=== PATIENT | male | born 1955 | race Caucasian/White ===

== ENCOUNTER 2019-03-11 14:56 | Outpatient (CLI) | payer MEDICAID, SELFPAY ==
[2019-03-11 17:02] LABS: Hemoglobin A1C 6.4 % (4.5-6.2)
== END 2019-03-11 15:16 ==
PROVIDERS: PCP General Practice; Visit Provider General Practice
DX: R73.09 Other abnormal glucose (principal)
CPT/HCPCS: 36415; 83036

== ENCOUNTER 2024-10-25 06:57 | Day surgery (SDC) | payer MEDICARE, SELFPAY ==
--- NOTE | 2024-10-24 19:17 | HPE_ITS ---
Assessment and Plan Assessment and plan (1) Nuclear age-related cataract, right eye: Status: Acute Assessment and plan: Assessment: Visually significant cataract of the right eye. Plan: Cataract extraction with intraocular lens implantation right eye, followed by left eye. (2) Nuclear age-related cataract, left eye: Status: Acute Assessment and plan: Assessment: Visually significant cataract of the left eye. Plan: Cataract extraction with intraocular lens implantation right eye, followed by left eye History of Present Illness History of Present Illness Chief Complaint: Progressive decreased vision, both eyes Narrative: The patient is a 69-year-old male who presented with complaints of decreased visual acuity in both eyes at both distance and near, right eye worse than left. He notes his glasses no longer helped his vision, and he has significant difficulty driving and snow or bright sun due to the glare. He wears [id number] glasses for reading, but these no longer help either. Review of Systems All systems reviewed & are unremarkable except as noted in HPI and below PFSH All Active Problems Nuclear age-related cataract, left eye (Acute) Nuclear age-related cataract, right eye (Acute) Cyst of kidney, acquired (Acute) Conductive hearing loss, external ear (Acute) Impacted cerumen, bilateral (Acute) Medical History History of excessive cerumen Kidney cysts onset 10/14/2020 Microalbuminuria onset 03/26/2020 Lymphadenopathy onset 10/14/2020 Chronic sciatica onset 03/25/2020 Fatty liver disease, nonalcoholic onset 05/04/2021 GERD (gastroesophageal reflux disease) 08/19/2019 Obstructive sleep apnea syndrome onset 07/24/13 Smoker onset 07/13/2021 Hyperlipidemia onset 03/25/2020 Type 2 diabetes mellitus onset 07/01/2020 Surgical History Status post trigger finger release 09/27/2016-Right ring & middle Family History Mother Neoplasm of brain Diabetes COPD (chronic obstructive pulmonary disease) Brother COPD (chronic obstructive pulmonary disease) Maternal Grandfather Heart disease Social History Smoking/Tobacco Use Status: Current-Occasional Tobacco: How many years used: 40 Smoking risk assessment performed?: Yes Alcohol Intake: current Alcohol Intake frequency: holidays/special occasions only Alcohol type: beer and wine Drug use: Never Substance use type: does not use Household members: spouse Housing: house Communication Needs: Corrective Lenses and Language Barriers 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[employer] Pets and animals: Yes Pets and animals: dog(s) What is your relationship status?: Panel score (0-1 are the most socially isolated patients): 1 Additional Social history: [facility] Meds Allergies and Home Medications Allergies Allergy/AdvReac Type Severity Reaction Status Date / Time tamsulosin Allergy itching, Verified 10/25/24 07:27 lightheadedness Home Medications ?Medication ?Instructions ?Recorded ?Confirmed ?Type aspirin 81 mg capsule 81 mg PO DAILY 10/27/21 10/25/24 History omega-3 fatty acids 500 mg capsule 500 mg PO DAILY 07/12/24 10/25/24 History losartan 25 mg tablet 25 mg PO DAILY 10/23/24 10/25/24 History naproxen 500 mg tablet,delayed 500 mg PO DAILY 10/23/24 10/25/24 History release Exam Eyes Other: On examination his corrected visual acuity was 20/200 OD, 20/40 OS. Extraocular Valerie is normal. Intraocular pressure is 15 OD, 17 OS. Slit-lamp examination shows pupils dilating only to 3.5 mm OU. There is a dense brunescent cataract in the right eye, with a more moderate brunescent cataract in the left eye. Funduscopic examination shows disc cupping of 0.3 OU with normal vessels, macula, peripheral retina and vitreous. Resp Auscultation: clear to auscultation bilaterally Cardio Rate: regular rate Rhythm: regular rhythm
[2024-10-25 07:08] VITALS: BP 168/79; PULSE 98; RESP 20; TEMP 36.5; O2SAT 99
[2024-10-25] MEDS: Tropicam./Phenyleph. (1/2.5%) 5 ML BTL OD ×3 (07:25→07:39)
--- NOTE | 2024-10-25 08:41 | W.ANESPRE ---
General Info Date of Service Date Performed: 10/25/24 Height: 5 ft 3 in Weight: 89 kg Body Mass Index (BMI): 34.7 Surgical Procedure: Operation Date: 10/25/24 09:10 Proposed Procedure Side Surgeon p Cataract Extraction with IOL Implant Right Nick Turner MD Meds Allergies and Home Medications Allergies Allergy/AdvReac Type Severity Reaction Status Date / Time tamsulosin Allergy itching, Verified 10/25/24 07:27 lightheadedness Home Medication ?Medication ?Instructions ?Recorded aspirin 81 mg capsule 81 mg PO DAILY 10/27/21 omega-3 fatty acids 500 mg capsule 500 mg PO DAILY 07/12/24 losartan 25 mg tablet 25 mg PO DAILY 10/23/24 naproxen 500 mg tablet,delayed 500 mg PO DAILY 10/23/24 release Current Visit Medications: Current Medications Generic Name Dose Route Start Last Admin Trade Name Freq PRN Reason Stop Dose Admin Acetaminophen 1,000 mg 10/25/24 06:00 Acetaminophen 500 Mg Tab PO 11/24/24 05:59 Q4H PRN PRN Balanced Salt Solution 500 ml 10/25/24 06:00 Balanced Salt Soln.-Plus 500 Ml Bag OP 11/24/24 05:59 DIRECTED [facility] Miscellaneous Medication 0 ml 10/25/24 06:00 Prednisolone 1%, Moxifloxacin 0.5%, Bromfenac 0.09% 5.6ml Btl OD 11/24/24 05:59 DIRECTED ARYAN Miscellaneous Medication 0 ml 10/25/24 06:00 10/25/24 07:39 Tropicam./Phenyleph. (1/2.5%) 5 Ml Btl OD 11/24/24 05:59 1 drp DIRECTED ARYAN Administration Tetracaine HCl 0 ml 10/25/24 06:00 Tetracaine 0.5% 4 Ml Btl OD 11/24/24 05:59 DIRECTED ARYAN PFSH Active Problems Active Problems: Problem Status Onset Code Nuclear age-related cataract, left eye Acute H25.12 Nuclear age-related cataract, right eye Acute H25.11 Cyst of kidney, acquired Acute N28.1 Conductive hearing loss, external ear Acute H90.2 Impacted cerumen, bilateral Acute H61.23 Medical History Medical History History of excessive cerumen Kidney cysts onset 10/14/2020 Microalbuminuria onset 03/26/2020 Lymphadenopathy onset 10/14/2020 Chronic sciatica onset 03/25/2020 Fatty liver disease, nonalcoholic onset 05/04/2021 GERD (gastroesophageal reflux disease) 08/19/2019 Obstructive sleep apnea syndrome onset 07/24/13 Smoker onset 07/13/2021 Hyperlipidemia onset 03/25/2020 Type 2 diabetes mellitus onset 07/01/2020 Surgical History Surgical History Status post trigger finger release 09/27/2016-Right ring & middle Tobacco Smoking/Tobacco Use Status: Current-Occasional Alcohol Alcohol Intake: current Alcohol intake frequency: holidays/special occasions only Alcohol type: beer and wine Substance Use Substance use: Never Substance use type: does not use Vital Signs and Lab Results Vital Signs Most Recent Vital Signs in EMR: Most Recent Vital Signs Temp Pulse Resp BP Pulse Ox 36.5 C 98 H 20 168/79 H 99 10/25/24 07:08 10/25/24 07:08 10/25/24 07:08 10/25/24 07:08 10/25/24 07:08 Lab Results Blood Type / Crossmatch: No Data to Display Complete Blood Count: No Data to Display Complete Metabolic Panel: No Data to Display Liver Function Panel: No Data to Display Coagulation Panel: No Data to Display Cardiac Panel: No Data to Display Arterial Blood Gas: No Data to Display Venous Blood Gas: No Data to Display Pancreas Panel: No Data to Display Thyroid Panel: No Data to Display Infectious Disease: No Data to Display Blood Cultures: No Data to Display Toxicology Panel: No Data to Display Anesthesia Assessment and Plan Anesthesia History Personal History: No History of Anesthesia Complications Family History: No Family History of Anesthesia Complications Exercise Tolerance Exercise Tolerance: Metabolic Equivalents>4 Cardiac & Pulmonary Exam Cardiac Exam: Normal S1/S2 Heart Sounds Pulmonary Exam: Clear Bilateral Breath Sounds Implantable Cardiac Device Does patient have a Pacemaker or an ICD?: No Airway Exam Known Difficult Airway: No Mallampati Class: 2 Mouth Opening: Normal (> 3cm) Thyromental Distance: Greater than 3 cm Neck Range of Motion: Full ROM Neck Circumference: Thick Teeth Condition: Normal Dentition (Few teeth missing) ASA Classification ASA Score: ASA 2 Emergency Case?: No NPO Status NPO Status: NPO Clears >2 hours, Solids >8 hours Anesthesia Plan Resuscitation Status: Full Code Anesthesia Technique: General Anesthesia Airway Planned: Natural Airway Monitors Used: Standard Monitors
[2024-10-25 09:10] VITALS: BMI 34.7
[2024-10-25] MEDS: Duovisc Viscoelastic System EACH 1 EACH (09:17)
[2024-10-25] MEDS: Moxifloxacin-PF 1 MG/ML VIAL (09:18)
[2024-10-25] MEDS: Lidocaine 1% Pres-Free 5 ML VIAL (09:18)
[2024-10-25] MEDS: Phenylephrine/Lidocaine (15/10) MG/ML 1 ML VIAL (09:19)
[2024-10-25] MEDS: Povidone-Iodine Ophth 30 ML BTL (09:20)
[2024-10-25] MEDS: Balanced Salt Soln.-PLUS 500 ML BAG OP (09:21)
[2024-10-25] MEDS: Prednisolone 1%, Moxifloxacin 0.5%, Bromfenac 0.09% 5.6ML BTL OD (09:22)
[2024-10-25] MEDS: Tetracaine 0.5% 4 ML BTL OD (09:24)
[2024-10-25] MEDS: Trypan Blue 0.06% 0.5 ML SYR (09:33)
[2024-10-25 09:59] VITALS: BP 148/66; PULSE 80; RESP 16; TEMP 36.7; O2SAT 97
--- NOTE | 2024-10-25 10:02 | ROE_ITS ---
Operative Note Operative Note PRE-OP DIAGNOSIS: Dense nuclear cataract, right eye Absent red reflex, right eye Poorly dilating pupil, right eye POST-OP DIAGNOSIS: same PROCEDURE: Cataract extraction using phacoemulsification with intraocular lens implant, right eye Pupillary dilation and iris stabilization with pupillary expansion device Insertion of capsule tension ring SURGEON: Nick Turner ANESTHESIA TYPE: Local By Surgeon and MAC Refer to Anesthesia Record ESTIMATED BLOOD LOSS: 0 PATHOLOGY: none sent COMPLICATIONS: None Patient was transported to: same day Patient's condition: stable Implants: Suresh & Suresh Tecnis Eyhance DIB00 Indications: Progressive visual loss due to cataract, right eye Poorly dilating pupil, right eye Procedure Description: CATARACT SURGERY OPERATIVE REPORT PREOPERATIVE DIAGNOSIS: 1. Dense nuclear cataract, right eye 2. Poorly dilating pupil, right eye POSTOPERATIVE DIAGNOSIS: Same OPERATION: 1. Cataract extraction using phacoemulsification with posterior chamber intraocular lens implant, right eye. IOL: IOL Psychological Operations/Model: Suresh & Suresh Tecnis Eyhance DIB00 IOL Power: + 25.0 diopters IOL Serial Number: [id number] Optic Diameter: 6.0mm Haptic/Overall Diameter: 13.0mm PHACO INFO: KirtFashiolistaurion Vision System with OZil and Active Fluidics Cumulative Dispersed Energy (CDE): 23.83 seconds SURGEON: Nick Turner MD, TYREL ANESTHESIA: Monitored Anesthesia Care (MAC), with local sub-tenon's anesthetic infiltration COMPLICATIONS: None SPECIMENS: None INDICATIONS FOR PROCEDURE: The patient is a 69-year-old male with history of progressive decreased vision in his right eye. He is noted to have a dense nuclear cataract with visual acuity of less than 2400. The option of cataract surgery was offered to the patient and he wished to proceed. See office notes for detailed information. PROCEDURE: The correct surgical eye was identified and marked as the right eye and the pupil was dilated in the preoperative area using mydriatics and cycloplegics. The dilated pupil size was 3.0 mm. The patient elected to proceed without oral sedation. The patient was brought to the operating room where cardiopulmonary monitoring was instituted and surgical time-out was performed, confirming the correct operative eye and IOL power. Topical anesthesia was administered and ophthalmic povidone-iodine 5% was instilled into the conjunctival fornices. The annalise-ocular area was prepped with Betadine 10% solution and draped in the usual sterile fashion for intraocular surgery, including an aperture drape. A Tegaderm transparent film dressing was cut in half and used to cover the lashes and lid margins. Care was taken to sequester the lashes and lid margins under the Tegaderm dressing. A lid speculum was placed between the lids of the operative eye and the Kirt LuxOR Revalia operating microscope was maneuvered into position. Valorie scissors were then used to make a conjunctival buttonhole approximately 6mm posterior to the limbus in the inferonasal quadrant. Blunt dissection was carried out to expose bare sclera, and a blunt-tipped sub-tenon?s anesthesia cannula was introduced and passed posteriorly along the globe where non- preserved plain lidocaine was injected into posterior sub-Tenon?s space. A sideport knife was used to make a paracentesis port. Intraocular phenylephrine/lidocaine was injected into the anterior chamber. The anterior chamber was filled with viscoelastic. A keratome knife was used to construct a 2-plane clear corneal tunnel extending 2.0mm into clear cornea. Provisc was injected into the anterior chamber, followed by a 6.25 mm pupil expansion device. The cohesive viscoelastic was then removed using irrigation/aspiration, and VisionBlue was instilled into the anterior chamber and painted over the anterior lens capsule and allowed to sit for 30 seconds. The VisionBlue was then irrigated out of the eye, and the anterior chamber preformed with Viscoat. A flap was raised on the anterior capsule and capsulorhexis forceps were used to complete a continuous curvilinear caps ulorhexis of 4.8 mm. The anterior capsule was noted to be extremely thin and mild to moderate diffuse Dondero laxity was noted. Balanced salt solution was then used to perform cortical cleaving hydr odissection and nuclear hydrodelineation until the lens could be freely rotated within the capsular bag. The lens nucleus was then disassembled and removed within the capsular bag and iris plane using phacoemulsification. The deep central groove was sculpted into the nucleus, which was rotated 180 degrees and the groove continued. Nucleus splitters were then used to crack the nucleus into 2 halves. Additional Viscoat was injected and each nuclear half was subchopped into multiple small fragments which were emulsified at the iris plane, instilling additional Viscoat intermittently. Residual cortical material was removed using the I/A handpiece. The posterior capsule was carefully polished to remove as much residual lens epithelial cells as safely possible. The capsular bag was then inflated and the anterior chamber deepened with cohesive viscoelastic. A Morcher Type 15 capsule tension ring was then inserted into the capsular bag without difficulty. The lens implant described above was inserted into the capsular bag using the Suresh and SocialPicksclark Check pre- loaded injector. A Kuglen hook was used to dial the IOL into position. The pupil expansion device was then removed in the reverse order of its insertion. Residual viscoelastic was then removed first from posterior to the IOL, then from the anterior chamber using the I/A handpiece. The lens implant was noted to center nicely within the capsular bag. The incisions were stromally hydrated, and the anterior chamber was reformed using BSS. Then 0.5cc of moxifloxacin 1.0mg/ml were injected into the capsular bag and anterior chamber. The incisions were checked with a Weck spear and found to be secure. Several drops of ophthalmic povidone-iodine 5% were then applied to the eye followed by two drops ocombination steroid/NSAID/antibiotic solution. The drapes were removed and a clear plastic protective eye shield was placed over the eye. The patient was then returned to Same Day Surgery in stable condition. Date of Procedure: 10/25/24
--- NOTE | 2024-10-25 10:02 | W.PM.DSUDISC ---
Date of service: 10/25/24 Discharge Plan Disposition Patient Disposition: Home Discharge Details Attending Provider: Nick Turner Primary Care Provider: Sarthak Tomlinson Home Meds and New Rx's Prescriptions: No Action aspirin 81 mg capsule 81 mg PO DAILY omega-3 fatty acids 500 mg capsule 500 mg PO DAILY losartan 25 mg tablet 25 mg PO DAILY Patient Comments: TAKE 1 TABLET BY MOUTH ONCE DAILY naproxen 500 mg tablet,delayed release (DR/EC) 500 mg PO DAILY Discharge Instructions Stand Alone Forms: DSU Post-Op Cataract, Anjelica Damian (DSU) Discharge Orders Discharge Orders: Discharge Order (Routine); Ordered 10/25/24 Ordered By: Nick Turner DS: Diagnosis Discharge Diagnosis (1) Nuclear age-related cataract, right eye: Status: Resolved
--- NOTE | 2024-10-25 10:11 | W.ANESPOSTOP ---
Postoperative Evaluation Date, Time and Location Date Performed: 10/25/24 Time Performed: 10:06 Patient Location: Day Surgery Unit Vital Signs Most Recent Imported Vital Signs: Most Recent Vital Signs Temp Pulse Resp BP Pulse Ox 36.7 C 80 16 148/66 H 97 10/25/24 09:59 10/25/24 09:59 10/25/24 09:59 10/25/24 09:59 10/25/24 09:59 Pain Score Most Recent Pain Score: Most Recent Pain Score Pain Level 0 10/25/24 09:59 Assessment Mental Status: Awake (Alert & Oriented to Patient Baseline) Airway and Respiratory Function: Patent airway with normal (patient baseline) respiratory exam Cardiovascular Function: Hemodynamically Stable Hydration Status: Adequately Hydrated Nausea & Vomiting: No Nausea or Vomiting Pain: Pt. Denies Any Pain Peripheral Nerve Block: Patient did not receive a nerve block
== END 2024-10-25 10:23 | disposition home or self-care (01) ==
LOC: SUR 06:58
PROVIDERS: PCP Physician Assistant; Visit Provider Ophthalmology
PROC: (CPT 66982; principal; 2024-10-25 09:00)
DX: H25.11 Age-related nuclear cataract, right eye (principal); H25.12 Age-related nuclear cataract, left eye; H57.09 Other anomalies of pupillary function
CPT/HCPCS: 66982; 00123; V2632; J2003

== ENCOUNTER 2025-02-07 13:03 | Day surgery (SDC) | payer MEDICARE, SELFPAY ==
--- NOTE | 2025-02-06 18:43 | W.PREOPHP ---
Assessment and Plan Assessment and plan (1) Nuclear age-related cataract, left eye: Status: Acute Assessment and plan: Assessment: Visually significant cataract, left eye. Plan: Cataract extraction with intraocular lens implant, left eye. History of Present Illness History of Present Illness Chief Complaint: progressive decreased vision left eye Narrative: The patient is a 70-year-old male with history of progressive decreased vision in both eyes, right eye worse than left. He noted difficulty seeing road signs and reading fine print. He has significant difficulty with glare. He was noted to have dense nuclear cataract in the right eye with moderate nuclear cataract in the left eye. He underwent cataract surgery in the right eye on 10/25/2024. Postoperatively he is doing well. He now presents for cataract surgery in the left eye. Review of Systems All systems reviewed & are unremarkable except as noted in HPI and below PFSH All Active Problems Nuclear age-related cataract, left eye (Acute) Cyst of kidney, acquired (Acute) Conductive hearing loss, external ear (Acute) Impacted cerumen, bilateral (Acute) Medical History History of excessive cerumen Kidney cysts onset 10/14/2020 Microalbuminuria onset 03/26/2020 Lymphadenopathy onset 10/14/2020 Chronic sciatica onset 03/25/2020 Fatty liver disease, nonalcoholic onset 05/04/2021 GERD (gastroesophageal reflux disease) 08/19/2019 Obstructive sleep apnea syndrome onset 07/24/13 Smoker onset 07/13/2021 Hyperlipidemia onset 03/25/2020 Type 2 diabetes mellitus onset 07/01/2020 Surgical History Status post trigger finger release 09/27/2016-Right ring & middle Family History Mother Neoplasm of brain Diabetes COPD (chronic obstructive pulmonary disease) Brother COPD (chronic obstructive pulmonary disease) Maternal Grandfather Heart disease Social History Smoking/Tobacco Use Status: Current-Occasional Tobacco Type: cigarettes Tobacco: How many years used: 40 Smoking risk assessment performed?: Yes Alcohol Intake: current Alcohol Intake frequency: holidays/special occasions only Alcohol type: beer and wine Drug use: Never Substance use type: does not use Household members: spouse Housing: house Communication Needs: Corrective Lenses and Language Barriers 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[employer] Pets and animals: Yes Pets and animals: dog(s) What is your relationship status?: Panel score (0-1 are the most socially isolated patients): 1 Additional Social history: [employer] Meds Allergies and Home Medications Allergies Allergy/AdvReac Type Severity Reaction Status Date / Time tamsulosin Allergy itching, Verified 02/07/25 13:30 lightheadedness Home Medications ?Medication ?Instructions ?Recorded ?Confirmed ?Type aspirin 81 mg capsule 81 mg PO DAILY 10/27/21 02/07/25 History omega-3 fatty acids 500 mg capsule 500 mg PO DAILY 07/12/24 02/07/25 History losartan 25 mg tablet 25 mg PO DAILY 10/23/24 02/07/25 History naproxen 500 mg tablet,delayed 500 mg PO DAILY 10/23/24 02/07/25 History release famotidine 20 mg tablet 20 mg PO DAILY PRN 02/05/25 02/07/25 History Exam Eyes Other: Most recent ocular examination is significant for visual acuity measuring 20/20 OD, 2080 OS. Extract motility is normal. Intraocular pressure is 14 OD, 18 OS. Slit-lamp examination shows pupils dilating only to 3.5 mm OU. In the right eye there is a well-positioned PCIOL with clear posterior capsule. The left eye there was a moderate brunescent nuclear cataract. Funduscopic examination shows disc cupping of 0.3 OU with normal vessels, macula, peripheral retina and vitreous. Resp Auscultation: clear to auscultation bilaterally Cardio Rate: regular rate Rhythm: regular rhythm
[2025-02-07 13:22] VITALS: BP 127/74; PULSE 82; RESP 16; TEMP 36.3; O2SAT 98
[2025-02-07] MEDS: Tropicam./Phenyleph. (1/2.5%) 5 ML BTL OS ×3 (13:29→13:41)
--- NOTE | 2025-02-07 13:29 | W.ANESPRE ---
General Info Date of Service Date Performed: 02/07/25 Height: 5 ft 3 in Weight: 89.3 kg Body Mass Index (BMI): 34.9 Surgical Procedure: Operation Date: 02/07/25 15:40 Proposed Procedure Side Surgeon p Cataract Extraction with IOL Implant Left Nick Turner MD Meds Allergies and Home Medications Allergies Allergy/AdvReac Type Severity Reaction Status Date / Time tamsulosin Allergy itching, Verified 02/07/25 13:30 lightheadedness Home Medication ?Medication ?Instructions ?Recorded aspirin 81 mg capsule 81 mg PO DAILY 10/27/21 omega-3 fatty acids 500 mg capsule 500 mg PO DAILY 07/12/24 losartan 25 mg tablet 25 mg PO DAILY 10/23/24 naproxen 500 mg tablet,delayed 500 mg PO DAILY 10/23/24 release famotidine 20 mg tablet 20 mg PO DAILY PRN 02/05/25 Current Visit Medications: Current Medications Generic Name Dose Route Start Last Admin Trade Name Freq PRN Reason Stop Dose Admin Acetaminophen 1,000 mg 02/07/25 06:00 Acetaminophen 500 Mg Tab PO 03/09/25 05:59 Q4H PRN PRN Balanced Salt Solution 500 ml 02/07/25 06:00 Balanced Salt Soln.-Plus 500 Ml Bag OP 03/09/25 05:59 DIRECTED [facility] Miscellaneous Medication 0 ml 02/07/25 06:00 Prednisolone 1%, Moxifloxacin 0.5%, Bromfenac 0.09% 5.6ml Btl OS 03/09/25 05:59 DIRECTED [facility] Miscellaneous Medication 0 ml 02/07/25 06:00 Tropicam./Phenyleph. (1/2.5%) 5 Ml Btl OS 03/09/25 05:59 DIRECTED [facility] Tetracaine HCl 0 ml 02/07/25 06:00 Tetracaine 0.5% 4 Ml Btl OS 03/09/25 05:59 DIRECTED [facility] PFSH Active Problems Active Problems: Problem Status Onset Code Nuclear age-related cataract, left eye Acute H25.12 Nuclear age-related cataract, right eye Resolved H25.11 Cyst of kidney, acquired Acute N28.1 Conductive hearing loss, external ear Acute H90.2 Impacted cerumen, bilateral Acute H61.23 Medical History Medical History History of excessive cerumen Kidney cysts onset 10/14/2020 Microalbuminuria onset 03/26/2020 Lymphadenopathy onset 10/14/2020 Chronic sciatica onset 03/25/2020 Fatty liver disease, nonalcoholic onset 05/04/2021 GERD (gastroesophageal reflux disease) 08/19/2019 Obstructive sleep apnea syndrome onset 07/24/13 Smoker onset 07/13/2021 Hyperlipidemia onset 03/25/2020 Type 2 diabetes mellitus onset 07/01/2020 Surgical History Surgical History Status post trigger finger release 09/27/2016-Right ring & middle Tobacco Smoking/Tobacco Use Status: Current-Occasional Tobacco Type: cigarettes Passive smoking exposure: Yes Alcohol Alcohol Intake: current Alcohol intake frequency: holidays/special occasions only Alcohol type: beer and wine Substance Use Substance use: Never Substance use type: does not use Vital Signs and Lab Results Vital Signs Most Recent Vital Signs in EMR: Most Recent Vital Signs Temp Pulse Resp BP Pulse Ox 36.3 C L 82 16 127/74 98 02/07/25 13:22 02/07/25 13:22 02/07/25 13:22 02/07/25 13:22 02/07/25 13:22 Point of Care Results Point of Care Results: Finger Stick Blood Glucose 124 02/07/25 13:22 Lab Results Blood Type / Crossmatch: No Data to Display Complete Blood Count: No Data to Display Complete Metabolic Panel: No Data to Display Liver Function Panel: No Data to Display Coagulation Panel: No Data to Display Cardiac Panel: No Data to Display Arterial Blood Gas: No Data to Display Venous Blood Gas: No Data to Display Pancreas Panel: No Data to Display Thyroid Panel: No Data to Display Infectious Disease: No Data to Display Blood Cultures: No Data to Display Toxicology Panel: No Data to Display Anesthesia Assessment and Plan Anesthesia History Personal History: No History of Anesthesia Complications Family History: No Family History of Anesthesia Complications Exercise Tolerance Exercise Tolerance: Metabolic Equivalents>4 Pertinent Negatives Pertinent Negatives: No Symptoms of GERD Cardiac & Pulmonary Exam Cardiac Exam: Normal S1/S2 Heart Sounds Pulmonary Exam: Clear Bilateral Breath Sounds Implantable Cardiac Device Does patient have a Pacemaker or an ICD?: No Airway Exam Known Difficult Airway: No Mallampati Class: 2 Mouth Opening: Normal (> 3cm) Thyromental Distance: Greater than 3 cm Neck Range of Motion: Full ROM Neck Circumference: Thick Teeth Condition: Normal Dentition (Few teeth missing) ASA Classification ASA Score: ASA 2 Emergency Case?: No NPO Status NPO Status: NPO Clears >2 hours, Solids >8 hours Anesthesia Plan Resuscitation Status: Full Code Anesthesia Technique: MAC Anesthesia Airway Planned: Natural Airway Monitors Used: Standard Monitors
[2025-02-07 13:31] VITALS: BMI 34.9
[2025-02-07] MEDS: Povidone-Iodine Ophth 30 ML BTL (13:59)
[2025-02-07] MEDS: Tetracaine 0.5% 4 ML BTL OS (14:00)
[2025-02-07] MEDS: Duovisc Viscoelastic System EACH 1 EACH (14:00)
[2025-02-07] MEDS: Phenylephrine/Lidocaine (15/10) MG/ML 1 ML VIAL (14:01)
[2025-02-07] MEDS: Balanced Salt Soln.-PLUS 500 ML BAG OP (14:08)
[2025-02-07] MEDS: Trypan Blue 0.06% 0.5 ML SYR (14:09)
[2025-02-07] MEDS: Lidocaine 1% Pres-Free 5 ML VIAL (14:09)
[2025-02-07] MEDS: Moxifloxacin-PF 1 MG/ML VIAL (14:10)
[2025-02-07] MEDS: Prednisolone 1%, Moxifloxacin 0.5%, Bromfenac 0.09% 5.6ML BTL OS (14:11)
[2025-02-07 14:47] VITALS: BP 135/97; PULSE 77; RESP 18; TEMP 36.4; O2SAT 99
--- NOTE | 2025-02-07 14:47 | W.PM.DSUDISC ---
Date of service: 02/07/25 Discharge Plan Disposition Patient Disposition: Home Discharge Details Attending Provider: Nick Turner Primary Care Provider: Sarthak Tomlinson Home Meds and New Rx's Prescriptions: No Action aspirin 81 mg capsule 81 mg PO DAILY omega-3 fatty acids 500 mg capsule 500 mg PO DAILY famotidine 20 mg tablet 20 mg PO DAILY PRN losartan 25 mg tablet 25 mg PO DAILY Patient Comments: TAKE 1 TABLET BY MOUTH ONCE DAILY naproxen 500 mg tablet,delayed release (DR/EC) 500 mg PO DAILY Discharge Instructions Stand Alone Forms: [facility] Post-Op Cataract, Anjelica Damian ([facility]U) Discharge Orders Discharge Orders: Discharge Order (Routine); Ordered 02/07/25 Ordered By: Nick Turner DS: Diagnosis Discharge Diagnosis (1) Nuclear age-related cataract, left eye: Status: Resolved
--- NOTE | 2025-02-07 14:48 | ROE_ITS ---
Operative Note Operative Note PRE-OP DIAGNOSIS: Dense nuclear cataract, left eye Poorly dilating pupil, left eye POST-OP DIAGNOSIS: same Significant diffuse zonular laxity, left eye PROCEDURE: Cataract extraction by phacoemulsification with intraocular lens implantation, left eye, with pupillary expansion device Insertion of capsular tension ring, left eye SURGEON: Nick Turner ANESTHESIA TYPE: Local By Surgeon and MAC Refer to Anesthesia Record ESTIMATED BLOOD LOSS: 0 PATHOLOGY: none sent COMPLICATIONS: None Patient was transported to: same day Patient's condition: stable Implants: Suresh [employer] Suresh / [employer] Tecnis Eyhance DIB00 Morcher Type 15 capsular tension ring Indications: Progressive decreased vision, left eye Poorly dilating pupil, left eye. Findings: Significant diffuse zonular laxity, left eye Procedure Description: CATARACT SURGERY OPERATIVE REPORT PREOPERATIVE DIAGNOSIS: 1. Dense nuclear cataract, left eye 2. Poorly dilating pupil, left eye POSTOPERATIVE DIAGNOSIS: Same OPERATION: 1. Cataract extraction using phacoemulsification with posterior chamber intraocular lens implant, left eye. 2. Pupillary dilation and iris stabilization using Malyugin Ring 3. Insertion of capsular tension ring, left eye IOL; IOL Manager Marketing/Model: [employer]h [employer] Suresh / TERRY Tecnis Eyhance DIB00 IOL Power: + 25.0 diopters IOL Serial Number: [id number] Optic Diameter: 6.0 mm Haptic/Overall Diameter: 13.00 mm PHACO INFO: Kirt Vir2usurion Vision System with OZil and Active Fluidics Cumulative Dispersed Energy (CDE): 10.03 seconds SURGEON: Nick Turner MD, TYREL ANESTHESIA: Monitored Anesthesia Care (MAC), with local sub-tenon's anesthetic infiltration COMPLICATIONS: None SPECIMENS: None INDICATIONS FOR PROCEDURE: The patient is a 70-year-old male with history of diminished visual acuity in both eyes secondary to the development of dense bilateral nuclear cataract. He has poorly dilating pupils and shallow anterior chambers. He has already undergone cataract surgery in the right eye and is doing well postoperatively. Surgery in the right eye necessitated use of capsular tension ring to support the loose zonules. He now presents for cataract surgery in the left eye see office notes for detailed information. PROCEDURE: The correct surgical eye was identified and marked as the left eye and the pupil was dilated in the preoperative area using mydriatics, cycloplegics, and NSAIDS (except in aspirin allergic patients). The patient elected to proceed without oral sedation. The patient was brought to the operating room where cardiopulmonary monitoring was instituted and surgical time-out was performed, confirming the correct operative eye and IOL power. Topical anesthesia was administered and ophthalmic povidone-iodine 5% was instilled into the conjunctival fornices. The annalise-ocular area was prepped with Betadine 10% solution and draped in the usual sterile fashion for intraocular surgery, including an aperture drape. A Tegaderm transparent film dressing was cut in half and used to cover the lashes and lid margins. Care was taken to sequester the lashes and lid margins under the Tegaderm dressing. A lid speculum was placed between the lids of the operative eye and the Jazzy-Ishmael operating microscope was maneuvered into position. Valorie scissors were then used to make a conjunctival buttonhole approximately 6mm posterior to the limbus in the inferonasal quadrant. Blunt dissection was carried out to expose bare sclera, and a blunt-tipped sub-tenon?s anesthesia cannula was introduced and passed posteriorly along the globe where non- preserved plain lidocaine was injected into posterior sub-Tenon?s space. A sideport knife was used to make a paracentesis port superiorly/superiortemporally. Intraocular phenylephrine/lidocaine was injected into the anterior chamber. VisionBlue was injected into the anterior chamber and allowed to sit for 30 seconds, and was then irrigated out with balanced salt solution. The anterior chamber was then filled with viscoelastic. A keratome knife was used to create a half-thickness groove at the limbus and then to construct a three-plane near-clear corneal tunnel extending 2.0mm into clear cornea at the temporal position. A 6.25 mm Malyugin Ring was then inserted into the pupillary space and engaged with the Kuglen hook. A flap was raised on the anterior capsule and capsulorhexis forceps were used to complete a continuous curvilinear capsulorhexis of 5.0 mm. The capsule was noted to be quite thin, and moderate zonular laxity was noted. Balanced salt solution was then used to perform cortical cleaving hydrodissection and nuclear hydrodelineation until the lens could be freely rotated within the capsular bag. The lens nucleus was then disassembled and removed within the capsular bag and iris plane using phacoemulsification. Residual cortical material was removed using the 45-degree angled silicone I/A tip with 0.3mm port. The posterior capsule was carefully polished to remove as much residual lens epithelial cells as safely possible. The capsular bag was then inflated and the anterior chamber deepened with viscoelastic. A Morcher Type 15 capsular tensioning was inserted into the capsular bag without difficulty. The lens implant described above was inserted into the capsular bag using the Suresh and Suresh Simplicity Injector. A Kuglen hook was used to dial the IOL into position. The Malyugin Ring was removed in the reverse order of its insertion. Residual viscoelastic was then removed first from posterior to the IOL, then from the anterior chamber using the I/A handpiece. The lens implant was noted to center nicely within the capsular bag. The incisions were stromally hydrated, and the anterior chamber was reformed using BSS. Then 0.5cc of moxifloxacin 1.0mg/ml were injected into the capsular bag and anterior chamber. The incisions were checked with a Weck spear and found to be secure. Several drops of ophthalmic povidone-iodine 5% were then applied to the eye followed by two drops of Imprimis combination prednisolone/moxifloxacin/nepafenac solution. The drapes were removed and a clear plastic protective eye shield was placed over the eye. The patient was then returned to Same Day Surgery in stable condition. Date of Procedure: 02/07/25
--- NOTE | 2025-02-07 15:14 | W.ANESPOSTOP ---
Postoperative Evaluation Date, Time and Location Date Performed: 02/07/25 Time Performed: 15:00 Patient Location: Day Surgery Unit Vital Signs Most Recent Imported Vital Signs: Most Recent Vital Signs Temp Pulse Resp BP Pulse Ox 36.4 C L 77 18 135/97 H 99 02/07/25 14:47 02/07/25 14:47 02/07/25 14:47 02/07/25 14:47 02/07/25 14:47 Pain Score Most Recent Pain Score: Most Recent Pain Score Pain Level 0 02/07/25 14:47 Assessment Mental Status: Awake (Alert & Oriented to Patient Baseline) Airway and Respiratory Function: Patent airway with normal (patient baseline) respiratory exam Cardiovascular Function: Hemodynamically Stable Hydration Status: Adequately Hydrated Nausea & Vomiting: No Nausea or Vomiting Pain: Pt. Denies Any Pain Peripheral Nerve Block: Patient did not receive a nerve block
== END 2025-02-07 15:05 | disposition home or self-care (01) ==
LOC: SUR 13:03
PROVIDERS: PCP Physician Assistant; Visit Provider Ophthalmology
PROC: (CPT 66982; principal; 2025-02-07 15:30)
DX: H25.12 Age-related nuclear cataract, left eye (principal); H27.112 Subluxation of lens, left eye; Z98.41 Cataract extraction status, right eye
CPT/HCPCS: 66982; 00123; V2632; J2003

== ENCOUNTER → 2025-09-01 12:52 | Outpatient (BNVA) | payer MEDICARE, SELFPAY | PROVIDERS: PCP Physician Assistant; Referring Provider Physician Assistant; Visit Provider Nurse Practitioner Gerontology | DX: N28.1 Cyst of kidney, acquired (principal); N40.1 Benign prostatic hyperplasia with lower urinary tract symptoms; R35.1 Nocturia; R10.A2 Flank pain, left side; N13.8 Other obstructive and reflux uropathy; E11.9 Type 2 diabetes mellitus without complications; G47.33 Obstructive sleep apnea (adult) (pediatric); Z72.0 Tobacco use | CPT/HCPCS: 99215; 81002; 51798 ==